=== PATIENT | female | born 1980 | race Asian ===

== ENCOUNTER 2021-05-02 10:15 | Inpatient (IN) | payer BC ==
[~2021-05-02] VITALS: Ht 157.5 cm; Wt 2.3 kg
[2021-05-09] MEDS ORDERED: PRENATAL CAPLE1 EAC1 PO (07:53)
[2021-05-09] MEDS ORDERED: INTEGRA PLUS C1 EACH PO (07:54)
== END 2021-05-11 13:39 | disposition home or self-care (01) | DRG 788 ==
LOC: O/R 05-09 06:46 → OB/GYN 05-09 06:46 → SURH 05-09 08:30 → OB/GYN 05-09 12:16
PROVIDERS: ADMIT Obstetrics & Gynecology Maternal & Fetal Medicine; ATTEND Obstetrics & Gynecology Maternal & Fetal Medicine
PROC: 4A1HXFZ Monitoring of Products of Conception, Cardiac Rhythm, External Approach (ICD-10-PCS; 2021-05-09)
PROC: 10D00Z1 Extraction of Products of Conception, Low, Open Approach (ICD-10-PCS; principal; 2021-05-09 08:30)
DX: O65.5 Obstructed labor due to abnormality of maternal pelvic organs (principal); O34.29 Maternal care due to uterine scar from other previous surgery; N85.8 Other specified noninflammatory disorders of uterus; Z3A.37 37 weeks gestation of pregnancy; Z37.0 Single live birth